=== PATIENT | female | born 1930 | race Caucasian/White ===

== ENCOUNTER 2017-06-25 17:11 | Inpatient (IN) | payer OTHER ==
[~2017-06-25] VITALS: Ht 167.6 cm; Wt 58.8 kg
--- NOTE | ~2017-06-25 | HC ---
[facility] [place] [address] CONSULTATION Name: SHAMAR DANIELLE Room #: 422-P ADM IN M.R.#: [id number] Admission: 06/25/17 Attend Phys: Lidya Colon Discharge: Date of : [birth year] Report #: [id number] THIS REPORT FOR: //name// CC: Parish Colon DATE OF SERVICE: 06/26/2017 REQUESTING PHYSICIAN: Lidya Colon MD. REASON FOR CONSULTATION: Geriatric consult. Thank you for the consultation. As you know, the patient is an 87-year-old female who presented to [facility] on 06/26/2017 with report of altered mental status and a new "tic" per [facility] at such time. In the ER, the patient was found to have possible urinary tract infection with 3+ leukocyte esterase, 6-15 white blood cells and negative nitrite though. Blood counts have been normal. The patient did have some alteration in her level of attention initially and was suspected to have UTI versus TIA as the origin of her delirium. The patient currently reports that she is feeling quite well. She does admit to having memory problems, although she states that she does not know the extent of this. The patient denies any other concerns at this time. PAST MEDICAL HISTORY: Significant for dementia, glaucoma, hyperlipidemia, osteoporosis and hypertension. PAST SURGICAL HISTORY: Cholecystectomy. FAMILY HISTORY: No apparent memory issues in the family. Mother with hypertension and rheumatoid arthritis. SOCIAL HISTORY: Quit smoking at around age 34, smoked for a short period of time, approximately 5 years. No heavy alcohol use. No history of head trauma. Her , Kike, apparently is living with her I suspect at [facility] according to the patient, 5 children, one girl and 4 boys, unknown who the power of deputy prosecuting attorney is at this time. ALLERGIES: No known drug allergies. MEDICATIONS: Lipitor 10 mg daily, Aricept 5 mg daily, latanoprost and brimonidine drop, alendronate weekly, verapamil 40 mg at bedtime in addition to verapamil 240 mg ER daily, Seroquel 25 mg at bedtime, Namenda 25 mg XL daily, aspirin 81 mg daily, Xanax 0.25 mg q. 6 hours p.r.n. anxiety. [address] [address] CONSULTATION Name: SHASHISHAMAR AVILEZ Room #: 422-[facility] IN M.R.#: [id number] Admission: 06/25/17 Attend Phys: Lidya Colon Discharge: Date of : [birth year] Report #: [id number] REVIEW OF SYSTEMS: GENERAL: The patient denies any recent weight loss, weight gain, fevers or chills. RESPIRATORY: Denies cough, shortness of breath or wheezing. CARDIOVASCULAR: Denies chest pain, palpitations, or edema. ABDOMEN: Denies nausea, vomiting, constipation, diarrhea, abdominal pain. MUSCULOSKELETAL: Denies any specific joint pains. INTEGUMENTARY: Denies any wounds or lacerations. PHYSICAL EXAMINATION: VITAL SIGNS: These include temperature is 36.5, pulse 59, respirations 18, blood pressure 139/51, 96% on room air. GENERAL: The patient is alert. She is oriented to self and also place, although this is intermittent. MoCA BLIND test was completed at this time and she received a 06/02. CARDIOVASCULAR: Regular rate and rhythm. No apparent edema. She did have a murmur 2/6 systolic. RESPIRATORY: Lungs are clear to auscultation bilaterally. No wheezes, rales or rhonchi. ABDOMEN: Soft, nontender to palpation. Positive bowel sounds noted in all 4 quadrants. EXTREMITIES: No apparent wounds. Moves all extremities without apparent difficulty. NEUROLOGIC: MoCA exam completed above. Attention level appears to be good at this time. Level of alertness is also appropriate. LABORATORY DATA: These include creatinine 1.2, GFR 42, albumin 2.9, TSH 1.311. BNP 527. CBC was within normal limits. UA with 3+ leukocyte and 6-15 white blood cells. ASSESSMENT AND PLAN: The patient is an 87-year-old female with the following concerns. 1. Delirium, unknown origin, possibly transient ischemic attack versus a urinary tract infection. The patient may benefit from dedicated MRI at this time; however, she seems to be much improved indicating either transient ischemic attack or that she has recovered from unknown episode. I do not appreciate movement disorder at this time or other concerns from that standpoint. 2. Dementia. At this time is on Namenda and Aricept, does not seem to have agitation at this time, would be a candidate for dose reduction on Seroquel to 12.5 mg. Of course, previous baseline is not known at this time, would not increase Aricept to 10 mg as she is currently borderline bradycardic. 3. At risk for deconditioning. At this time, I would recommend PT and occupational therapy evaluation. I believe the patient will be able to participate quite well with therapy. 4. At risk for protein-calorie malnutrition. Agree with Boost additional to [facility] [address] [place] [address] CONSULTATION Name: SHAMAR DANIELLE Room #: 422-P ADM IN M.R.#: [id number] Admission: 06/25/17 Attend Phys: Lidya Colon Discharge: Date of : [birth year] Report #: [id number] her current diet. 5. I will continue to follow with this patient, although I believe she has improved significantly from her initial admission. By: 1936 39 Triston Tavares DO /nt
--- NOTE | ~2017-06-25 | 2DMMODE ---
[facility] [address] [place] [address] 2 D/M-MODE ECHOCARDIOGRAM Name: SHAMAR DANIELLEEEN Room #: 422-P ADM IN M.R.#: [id number] Admission: 06/25/17 Attend Phys: Lidya Gutierrez Discharge: Date of : [birth year] Date of Service: 06/26/17 1145 Report #: [id number] THIS REPORT FOR: //name// APPROVED REPORT Study performed: 06/26/2017 10:12:35 EXAM: Comprehensive 2D, Doppler, and color-flow Echocardiogram Patient Location: Bedside Room #: 422 Status: routine BSA: 1.66 BP: 139/51 mmHg Other Information Study Quality: Adequate Indications Dyspnea 2D Dimensions RVDd: 33.43 mm LVEF(%): 70.62 (>50%) IVSd: 8.79 (7-11mm) LVOT Diam: 18.70 (18-24mm) LVDd: 36.02 mm PWd: 10.28 (7-11mm) Ascending Ao: 26.02 (22-36mm) LVDs: 21.90 (25-40mm) Aortic Root: 29.33 mm [place]ing's LVEF: 70.62 % Volumes Left Atrial Volume (Systole) Single Plane 4CH: 32.22 mL Single Plane 2CH: 42.57 mL LA ESV Index: 25.00 mL/m2 Aortic Valve AoV Peak Bishnu.: 1.74 m/s AO Peak Gr.: 12.13 mmHg LVOT Max P.14 mmHg LVOT Max V: 1.24 m/s FRANCES Vmax: 1.95 cm2 Mitral Valve E/A Ratio: 1.0 MV Decel. Time: 248.58 ms MV E Max Bishnu.: 0.99 m/s [facility] [address] [place] [address] 2 D/M-MODE ECHOCARDIOGRAM Name: SHAMAR DANIELLE Room #: 422-P [facility] IN M.R.#: [id number] Admission: 06/25/17 Attend Phys: Lidya Gutierrez Discharge: Date of : [birth year] Date of Service: 06/26/17 1145 Report #: [id number] MV A Bishnu.: 1.02 m/s MV PHT: 72.09 ms IVRT: 83.04 ms Pulmonary Valve PV Peak Bishnu.: 0.98 m/s PV Peak Gr.: 3.86 mmHg Pulmonary Vein P Vein S: 0.58 m/s P Vein A: 0.29 m/s P Vein D: 0.41 m/s P Vein A Dur.: 138.4 msec P Vein S/D Ratio: 1.41 Tricuspid Valve TR Peak Bishnu.: 2.79 m/s RAP Estimate: 5.00 mmHg TR Peak Gr.: 31.08 mmHg PA Pressure: 36.00 mmHg Left Ventricle The left ventricle is normal size. There is normal LV segmental wall motion. There is normal left ventricular wall thickness. The left ventricular systolic function is normal. The left ventricular ejection fraction is within the normal range. LVEF is 60-65%. Grade I diastolic dysfunction Right Ventricle The right ventricle is normal size. The right ventricular systolic function is normal. Atria The left atrium size is normal. The right atrium size is normal. Aortic Valve The aortic valve is not well visualized, mildly calcified Trace aortic regurgitation. There is no aortic valvular stenosis. Mitral Valve The mitral valve is normal in structure. Trace mitral regurgitation. No evidence of mitral valve stenosis. Tricuspid Valve The tricuspid valve is normal in structure. There is trace tricuspid regurgitation. The right atrial pressure is estimated at 5 mmHg. There is mild pulmonary hypertension with an estimated PAP of 35 mmHg. [facility] [address] [place] [address] 2 D/M-MODE ECHOCARDIOGRAM Name: SHASHISALVADORSHAMARERASMO DUMONTHLEEN Room #: 422-P [facility] IN ..#: [id number] Admission: 06/25/17 Attend Phys: Lidya Gutierrez Discharge: Date of : [birth year] Date of Service: 06/26/17 1145 Report #: [id number] Pulmonic Valve The pulmonary valve is normal in structure. There is no pulmonic valvular regurgitation. Great Vessels The aortic root is normal in size. The ascending aorta is normal in size. Pericardium There is no pericardial effusion. <Conclusion> The left ventricular systolic function is normal. There is normal LV segmental wall motion. LVEF is 60-65%. Grade I diastolic dysfunction The aortic valve is not well visualized, mildly calcified. No aortic valvular stenosis or insufficiency. The mitral valve is normal in structure. Trace mitral regurgitation. Pulmonary artery pressure of 35mmHg There is no pericardial effusion. <ELECTRONICALLY SIGNED> By: Micky Thomas MD, [facility] 06/26/17 1145 1145 1145 Micky Thomas MD, FACC /INF
[~2017-06-25 17:11] MED LIST: ARICEPT 5 MG TAB5 MG PO; ASPIR 8181 MG PO; LIPITOR10 MG PO; MULTI-DAY VITA1 EACH PO; SEROQUEL 25 MG25 M2 PO; XANAX 0.25 MG0.25 MG PO
[2017-06-25 17:13] VITALS: BP 182/56
[2017-06-25] MEDS ORDERED: NAMENDA XR28 MG PO (17:22)
[2017-06-25] MEDS ORDERED: ARTIFICIAL TEA1 EACH OP (17:22)
[2017-06-25] MEDS ORDERED: ALPHAGAN P10 ML OP (17:24)
[2017-06-25] MEDS ORDERED: XALATAN2.5 ML OPHTHALMIC (17:24)
[2017-06-25] MEDS ORDERED: VERAPAMIL E.R240 M1 PO (17:24)
[2017-06-25] MEDS ORDERED: ALENDRONATE SODI5 MG (17:24)
[2017-06-25] MEDS ORDERED: TRAZODONE HCL50 MG PO (17:25)
[2017-06-25] MEDS ORDERED: ACCUNEB SO1.25 MG/1 INH (17:25)
[2017-06-25 18:20] LABS: URINE BILIRUBIN NEGATIVE (Negative); URINE BLOOD NEGATIVE (Negative); URINE COLOR YELLOW; URINE GLUCOSE-RANDOM* NEGATIVE (Negative); URINE KETONES NEGATIVE (Negative); URINE NITRITE NEGATIVE (Negative); URINE PROTEIN (DIPSTICK) NEGATIVE (Negative); URINE UROBILINOGEN 0.2 E.U./dl (0.2-1.0)
[2017-06-25 18:26] LABS: SQUAMOUS 0-3 Few /LPF (0-3)
[2017-06-25 18:27] LABS: BACTERIA None Seen /HPF (None Seen); CASTS None Seen /LPF (None Seen); CRYSTALS None Seen /LPF (None Seen); URINE RBC 0-2 Rare /HPF (0-2); URINE WBC 6-15 Few /HPF (0-5)
[2017-06-25 19:38] LABS: ABSOLUTE NEUTROPHILS 6.3 thou/uL (1.4-8.2); BASOPHILS 0.7 % (0.0-2.0); EOSINOPHILS 1.3 % (0.0-3.0); HEMATOCRIT 39.2 % (37.0-47.0); HEMOGLOBIN 13.1 gm/dL (12.0-15.0); LYMPHOCYTES 15.9 % (24.0-44.0); MCH 29.6 pg (26.0-34.0); MCHC 33.4 g/dL (28.0-37.0); MCV 88.7 fL (80.0-100.0); MONOCYTES 8.4 % (1.0-8.0); PLATELET COUNT 198 thou/uL (150-400); POLYS 73.7 % (36.0-66.0); RBC 4.43 mil/uL (4.20-5.00); RDW 13.7 % (10.5-14.5); WBC 8.6 thou/uL (4.0-11.0)
[2017-06-25 19:46] LABS: CALCIUM 8.9 mg/dL (8.5-10.1); CREATININE 1.2 mg/dL (0.6-1.0); POTASSIUM 4.3 mmol/L (3.5-5.1)
[2017-06-25 19:47] LABS: MANUAL DIFF NO
[2017-06-25 19:52] LABS: ALBUMIN 3.3 g/dL (3.4-5.0); DIRECT BILIRUBIN 0.2 mg/dL (<0.1-0.3); TOTAL BILIRUBIN 0.8 mg/dL (<0.1-1.0); TOTAL PROTEIN 7.3 g/dL (6.4-8.2)
[2017-06-25 21:04] VITALS: BP 156/63
[2017-06-25] MEDS ORDERED: SEROQUEL XR50 MG PO (21:39)
[2017-06-25] MEDS ORDERED: VERAPAMIL HCL40 MG PO (21:42)
[2017-06-25 22:10] VITALS: BP 146/67
[2017-06-26 04:24] VITALS: BP 152/50
[2017-06-26 06:41] LABS: HEMATOCRIT 38.6 % (37.0-47.0); HEMOGLOBIN 12.4 gm/dL (12.0-15.0); MCH 28.8 pg (26.0-34.0); MCHC 32.2 g/dL (28.0-37.0); MCV 89.5 fL (80.0-100.0); RBC 4.31 mil/uL (4.20-5.00); RDW 13.6 % (10.5-14.5); WBC 7.6 thou/uL (4.0-11.0)
[2017-06-26 06:58] LABS: ALBUMIN 2.9 g/dL (3.4-5.0); CALCIUM 8.7 mg/dL (8.5-10.1); CREATININE 1.1 mg/dL (0.6-1.0); POTASSIUM 3.9 mmol/L (3.5-5.1); TOTAL BILIRUBIN 1.2 mg/dL (<0.1-1.0); TOTAL PROTEIN 6.7 g/dL (6.4-8.2)
[2017-06-26 08:32] VITALS: BP 139/51
[2017-06-26 10:02] LABS: CHOLESTEROL 152 mg/dL (<200); HDL CHOLESTEROL 77 mg/dL (>40); LDL CHOLESTEROL 64 mg/dL (<100); TRIGLYCERIDE 58 mg/dL (<150); VLDL 12 mg/dL (<40)
[2017-06-26 16:56] VITALS: BP 143/49
[2017-06-26 20:00] VITALS: BP 152/54
[2017-06-27 04:00] VITALS: BP 154/64
[2017-06-27 08:00] VITALS: BP 150/50
[2017-06-27] MEDS ORDERED: AUGMENTIN 875875 MG PO (09:46)
[2017-06-27] MEDS ORDERED: ASPIRIN325 PO (09:47)
[2017-06-27 09:58] VITALS: BP 150/50
== END 2017-06-27 11:20 | DRG 177 ==
LOC: ER 17:11 → 4E 20:13 → EROBS 20:13 → 4E 21:05
PROVIDERS: Hospitalist; Nurse Practitioner
DX: J69.0 Pneumonitis due to inhalation of food and vomit (principal); G93.40 Encephalopathy, unspecified; N39.0 Urinary tract infection, site not specified; G45.9 Transient cerebral ischemic attack, unspecified; E78.5 Hyperlipidemia, unspecified; F03.90 Unspecified dementia, unspecified severity, without behavioral disturbance, psychotic disturbance, mood disturbance, and anxiety; H40.9 Unspecified glaucoma; E86.0 Dehydration; M81.0 Age-related osteoporosis without current pathological fracture; I10 Essential (primary) hypertension; Z90.49 Acquired absence of other specified parts of digestive tract; Z82.49 Family history of ischemic heart disease and other diseases of the circulatory system; Z82.61 Family history of arthritis; Z87.891 Personal history of nicotine dependence
CPT/HCPCS: 10183

== ENCOUNTER → 2017-08-15 | Outpatient (CLI) | payer OTHER ==
[~2017-08-15] MED LIST changes: +ACCUNEB SO1.25 MG/1 INH; +ALENDRONATE SODI5 MG; +ALPHAGAN P10 ML OP; +ARTIFICIAL TEA1 EACH OP; +ASPIRIN325 PO; +AUGMENTIN 875875 MG PO; +NAMENDA XR28 MG PO; +SEROQUEL XR50 MG PO; +TRAZODONE HCL50 MG PO; +VERAPAMIL E.R240 M1 PO; +VERAPAMIL HCL40 MG PO; +XALATAN2.5 ML OPHTHALMIC
== END ==
LOC: RAD 14:46
DX: R06.02 Shortness of breath (principal); R91.8 Other nonspecific abnormal finding of lung field

== ENCOUNTER → 2017-08-24 | Outpatient (CLI) | payer OTHER | LOC: CAT 10:17 | DX: J47.9 Bronchiectasis, uncomplicated (principal); I25.10 Atherosclerotic heart disease of native coronary artery without angina pectoris; R91.8 Other nonspecific abnormal finding of lung field ==

== ENCOUNTER → 2017-09-27 | Outpatient (CLI) | payer OTHER | LOC: RAD 13:13 | DX: R91.8 Other nonspecific abnormal finding of lung field (principal) ==

== ENCOUNTER 2018-05-08 09:07 | Emergency (ER) | payer OTHER ==
[~2018-05-08] VITALS: Ht 152.4 cm; Wt 68.0 kg
--- NOTE | ~2018-05-08 | EKG ---
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
[2018-05-08 09:23] LABS: ABSOLUTE NEUTROPHILS 5.9 thou/uL (1.4-8.2); BASOPHILS 0.7 % (0.0-2.0); EOSINOPHILS 4.2 % (0.0-3.0); HEMOGLOBIN 12.3 gm/dL (12.0-15.0); LYMPHOCYTES 20.1 % (24.0-44.0); MCH 29.5 pg (26.0-34.0); MCHC 33.3 g/dL (28.0-37.0); MCV 88.7 fL (80.0-100.0); MONOCYTES 8.8 % (1.0-8.0); PLATELET COUNT 210 thou/uL (150-400); POLYS 66.2 % (36.0-66.0); RBC 4.18 mil/uL (4.20-5.00); WBC 8.9 thou/uL (4.0-11.0)
[2018-05-08 09:31] LABS: ANION GAP 3 mmol/L (7-16); BUN 24 mg/dL (7-18); CALCIUM 9.8 mg/dL (8.5-10.1); CHLORIDE 105 mmol/L (98-107); CO2 30 mmol/L (21-32); CREATININE 1.5 mg/dL (0.6-1.0); GLUCOSE 101 mg/dL (74-106); POTASSIUM 4.4 mmol/L (3.5-5.1); SODIUM 138 mmol/L (136-145)
[2018-05-08 09:39] LABS: TROPONIN-I <0.06 ng/mL (<0.06)
[2018-05-08] MEDS ORDERED: NORCO 5-325 TA1 EACH PO (10:30)
[2018-05-08] MEDS ORDERED: BREO ELLIPTA 11 EACH INH (10:40)
== END 2018-05-08 11:28 | disposition home or self-care (01) ==
LOC: ER 09:07
PROVIDERS: Emergency Medicine
DX: M25.512 Pain in left shoulder (principal); E78.5 Hyperlipidemia, unspecified

== ENCOUNTER → 2019-02-17 | Outpatient (CLI) | payer OTHER ==
[~2019-02-17] MED LIST changes: +BREO ELLIPTA 11 EACH INH; +NORCO 5-325 TA1 EACH PO
== END ==
LOC: RAD 15:12
DX: J98.4 Other disorders of lung (principal)

== ENCOUNTER 2019-03-30 15:35 | Emergency (ER) | payer OTHER ==
[~2019-03-30] VITALS: Ht 154.9 cm; Wt 54.4 kg
[2019-03-30 16:35] LABS: HEMATOCRIT 38.5 % (37.0-47.0); HEMOGLOBIN 12.6 gm/dL (12.0-15.0); MCH 28.6 pg (26.0-34.0); MCHC 32.6 g/dL (28.0-37.0); MCV 87.5 fL (80.0-100.0); PLATELET COUNT 239 thou/uL (150-400); RDW 15.4 % (10.5-14.5); WBC 7.7 thou/uL (4.0-11.0)
[2019-03-30 16:46] LABS: CALCIUM 9.3 mg/dL (8.5-10.1); CREATININE 1.7 mg/dL (0.6-1.0); POTASSIUM 4.1 mmol/L (3.5-5.1)
[2019-03-30 16:52] LABS: ALBUMIN 3.5 g/dL (3.4-5.0); TOTAL BILIRUBIN 0.5 mg/dL (<0.1-1.0)
[2019-03-30 16:53] LABS: ABSOLUTE NEUTROPHILS 5.2 thou/uL (1.4-8.2); LARGE PLATELETS RARE
[2019-03-30 16:54] LABS: ANISOCYTOSIS SLIGHT; POIKILOCYTOSIS SLIGHT
[2019-03-30] MEDS ORDERED: TESSALON PERLE100 MG PO (17:32)
[2019-03-30] MEDS ORDERED: ACCUNEB SO1.25 MG/1 INH (17:32)
[2019-03-30 18:00] VITALS: BP 138/91
--- NOTE | 2019-03-30 22:43 | EKG ---
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 ��������������������������������������������� <ELECTRONICALLY SIGNED> ���������������������������������������� By: Juanito Campos MD ��������������������������������������������� 03/30/19 2243 1628 1628 Juanito Campos MD /EPI
== END 2019-03-30 18:00 | disposition home or self-care (01) ==
LOC: ER 15:35
PROVIDERS: Physician Assistant
DX: J06.9 Acute upper respiratory infection, unspecified (principal); E78.5 Hyperlipidemia, unspecified; Z87.01 Personal history of pneumonia (recurrent); Z79.899 Other long term (current) drug therapy